=== PATIENT | female | born 1985 | race Caucasian/White ===

== ENCOUNTER 2018-12-22 12:53 | Emergency (ER) | payer SELFPAY ==
[~2018-12-22] VITALS: Ht 172.7 cm; Wt 62.3 kg
[2018-12-22] MEDS ORDERED: KETOROLAC 30 MG/ML VIAL. IM STA (15:27)
[2018-12-22] MEDS ORDERED: DIPHTH,PERTUSS(ACELL),TET TOX 0.5 ML DISP.SYRIN. VAX IM ONE (15:30)
--- NOTE | 2018-12-22 15:39 | PHYS DOC ---
Past Medical History Past Medical History: No Pertinent History Past Surgical History: No Surgical History Alcohol Use: None Adult General Chief Complaint Chief Complaint: KNEE INJURY HPI HPI Patient is a 33 year old female that presents with the complaint of a fall that happened this morning. The patient states she tripped over car dipstick. The patient states that she is having left knee pain, right elbow pain, and right orbital pain. The patient states her pain as 10 out of 10 in severity and sharp. States she took ibuprofen at home before coming. No other complaints. Review of Systems Review of Systems Constitutional: Denies fever or chills [] Eyes: Denies change in visual acuity, redness, or eye pain [] HENT: Denies nasal congestion or sore throat [] Respiratory: Denies cough or shortness of breath [] Cardiovascular: No additional information not addressed in HPI [] GI: Denies abdominal pain, nausea, vomiting, bloody stools or diarrhea [] : Denies dysuria or hematuria [] Musculoskeletal: Reports knee, and elbow pain. Report R orbital pain. Integument: Denies rash or skin lesions [] Neurologic: Denies headache, focal weakness or sensory changes [] Endocrine: Denies polyuria or polydipsia [] Complete systems were reviewed and found to be within normal limits, except as documented in this note. Current Medications Current Medications Current Medications Medications (Trade) Dose Ordered Sig/Apoorva Start Time Stop Time Status Last Admin Dose Admin Diphtheria/ Tetanus/Acell Pertussis (Boostrix) 0.5 ml ONCE ONCE 12/22/18 15:30 12/22/18 15:40 DC Ketorolac Tromethamine (Toradol 30mg Vial) 30 mg 1X STAT 12/22/18 15:27 12/22/18 15:28 DC 12/22/18 15:37 30 MG Morphine Sulfate (Morphine Sulfate) 10 mg 1X ONCE 12/22/18 18:15 12/22/18 18:16 DC 12/22/18 18:03 10 MG Allergies Allergies Allergies Coded Allergies Type Severity Reaction Last Updated Verified Sulfa (Sulfonamide Antibiotics) Allergy Unknown Rash 12/22/18 Yes Physical Exam Physical Exam Constitutional: Well developed, well nourished, no acute distress, non-toxic a ppearance. [] HENT: Normocephalic, atraumatic, bilateral external ears normal, oropharynx moist, no oral exudates, nose normal. [] Eyes: PERRLA, EOMI, conjunctiva normal, no discharge. Right orbital tenderness, with black bruising. Neck: Normal range of motion, no tenderness, supple, no stridor. [] Cardiovascular:Heart rate regular rhythm, no murmur [] Lungs & Thorax: Bilateral breath sounds clear to auscultation [] Abdomen: Bowel sounds normal, soft, no tenderness, no masses, no pulsatile masses. [] Skin: abrasions diffusely at different stages of healing. Back: No tenderness, no CVA tenderness. [] Extremities: Tenderness to left knee, and right elbow, edema to left knee. Neurologic: Alert and oriented X 3, normal motor function, normal sensory function, no focal deficits noted. [] Psychologic: Affect normal, judgement normal, mood normal. [] Current Patient Data Vital Signs Vital Signs Date Time Temp Pulse Resp B/P (MAP) Pulse Ox O2 Delivery O2 Flow Rate FiO2 12/22/18 14:30 98.0 99 18 122/81 (95) 99 Room Air 98.0 Lab Values Laboratory Tests Test 12/22/18 15:55 POC Urine HCG, Qualitative Hcg negative (Negative) EKG EKG [] Radiology/Procedures Radiology/Procedures [facility] [address] [place] [address] IMAGING REPORT Signed PATIENT: RENEE YO ACCOUNT: [id number] : 1985 LOCATION: ER AGE: 33 SEX: F EXAM STATUS: REG ER ORD. PHYSICIAN: GONZALES LAU APRN REASON: fall/NEEDS PREG TEST @ 1550 PROCEDURE: KNEE LEFT 3V Study: KNEE LEFT 3V Indication: Fall. Comparison: None. Findings: Very large knee joint effusion. The patella is tilted laterally and there is soft tissue prominence at the medial aspect of the knee. As seen on the AP views, serpiginous lucencies through the patella concerning for nondisplaced fracture clefts despite being essentially occult on the sunrise view. Osteopenia. Impression: 1. Very large knee joint effusion which is secondary to nondisplaced fracturing of the patella. The patella is laterally tilted and there is soft tissue prominence at the medial aspect of the knee. Though this soft tissue prominence could be related to joint distention, injury to the medial supporting structures is not excluded by radiography. 2. Osteopenia. Eventual DEXA scan is recommended to fully characterize given patient age. Electronically signed by: SD CHANDLER MD (12/22/2018 5:05 PM) [facility] DICTATED and SIGNED BY: SD CHANDLER MD DATE: 12/22/18 [address] [facility] [address] [place] [address] IMAGING REPORT Signed PATIENT: RENEE YO ACCOUNT: [id number] : 1985 LOCATION: ER AGE: 33 SEX: F EXAM STATUS: REG ER ORD. PHYSICIAN: GONZALES LAU APRN REASON: fall/NEEDS PREG TEST @ 1550 PROCEDURE: ELBOW RIGHT 3V Examination: ELBOW RIGHT 3V History: Fall, pain Comparison/Correlation: None Findings: Total 3 images of the right elbow were obtained. Joint spaces are normal. No fracture or bony destruction. No elbow joint effusion suspected. No degenerative change. Impression: No acute process. Electronically signed by: Jairo Matias MD (12/22/2018 5:00 PM) [facility] DICTATED and SIGNED BY: JAIRO MATIAS MD DATE: 12/22/18 1700 [][address] [place] [address] IMAGING REPORT Signed PATIENT: RENEE YO ACCOUNT: [id number] : 1985 LOCATION: ER AGE: 33 SEX: F EXAM STATUS: REG ER ORD. PHYSICIAN: GONZALES LAU APRN REASON: FALL TODAY PER PATIENT, FACIAL INJURY PROCEDURE: CT MAXILLOFACIAL WO CONTRAST Examination: CT MAXILLOFACIAL WO CONTRAST History: Facial injury, fall, pain Comparison/Correlation: None Findings: Maxillofacial CT exam was performed. Axial images were acquired and sagittal and coronal reformatted images were provided. Globes and optic nerves are unremarkable. Extraocular muscles are normal. Subcutaneous edema involving the subcutaneous fat about the right the hepatic bone anteriorly and the right premaxillary region noted Severe dental caries involvement of the kidneys noted. Absence of numerous crowns evident. Right upper central and lateral incisors have a large periapical cyst associated with the roots measuring up to 0.9 cm transverse by 1.4 cm longitudinal by 0.9 cm anteroposterior. Bony resorption along the posterior aspect of the maxilla at the site of this cystic structure noted. Dental caries noted as well. Periapical lucency is notable involving the right upper canine tooth. Periapical lucencies involving other teeth to a lesser extent also seen. No displaced fracture. Temporomandibular joints are unremarkable. Visualized upper cervical spine is unremarkable. Impression: Subcutaneous edema involving the right infraorbital region and anterior right zygomatic region. No loculated collection. No depressed fracture. Extensive dental caries. Absence of numerous crowns. Large periapical cystic structure involving the right upper central and lateral incisor. This is of concern for periodontal disease. Bony resorption along the posterior aspect of the maxilla at this level noted. Periapical lucencies otherwise also seen of concern for periodontal disease. PQRS Compliance Statement: One or more of the following individualized dose reduction techniques were utilized for this examination: 1. Automated exposure control 2. Adjustment of the mA and/or kV according to patient size 3. Use of iterative reconstruction technique Electronically signed by: Jairo Matias MD (12/22/2018 4:29 PM) [facility] DICTATED and SIGNED BY: JAIRO MATIAS MD DATE: 12/22/18 1629 Course & Med Decision Making Course & Med Decision Making Pertinent Labs and Imaging studies reviewed. (See chart for details) Will get CT scan, and x-rays. X-ray shows a patellar fracture. Discussed with Dr. Romero who recommends knee immobilizer and crutches and to see him in Clinic. Dragon Disclaimer Dragon Disclaimer This electronic medical record was generated, in whole or in part, using a voice recognition dictation system. Departure Departure Impression: Primary Impression: Patellar fracture Disposition: HOME, SELF-CARE Condition: STABLE Referrals: NO PCP (PCP) JUSTINE ROMERO MD Patient Instructions: Patellar Fracture, Adult Additional Instructions: Thank you for visiting [facility]. We appreciate you trusting us with your care. If any additional problems come up don't hesitate to return to visit us. Please follow up with your primary care provider so they can plan additional care if needed and know about the problem that you had. If symptoms worsen come back to the Emergency Department. Any concerning symptoms that start such as chest pain, shortness of air, weakness or numbness on one side of the body, running high fevers or any other concerning symptoms return to the ER. Please follow up with ortho and follow up with your primary care doctor for DEXA scan. Scripts Ondansetron (ONDANSETRON ODT) 4 Mg Tab.rapdis 1 TAB PO PRN Q6-8HRS PRN for NAUSEA, #16 TAB Prov: GONZALES LAU APRN 12/22/18 Hydrocodone/Apap 5-325 (NORCO 5-325 TABLET) 1 Each Tablet 1-2 TAB PO Q4-6HRS, #12 TAB Prov: GONZALES LAU APRN 12/22/18 Problem Qualifiers Primary Impression: Patellar fracture Encounter type: initial encounter Fracture type: closed Fracture alignment: nondisplaced Laterality: left GONZALES LAU APRN Dec 22, 2018 15:39
--- NOTE | 2018-12-22 16:32 | RAD ---
Examination: CT MAXILLOFACIAL WO CONTRAST History: Facial injury, fall, pain Comparison/Correlation: None Findings: Maxillofacial CT exam was performed. Axial images were acquired and sagittal and coronal reformatted images were provided. Globes and optic nerves are unremarkable. Extraocular muscles are normal. Subcutaneous edema involving the subcutaneous fat about the right the hepatic bone anteriorly and the right premaxillary region noted Severe dental caries involvement of the kidneys noted. Absence of numerous crowns evident. Right upper central and lateral incisors have a large periapical cyst associated with the roots measuring up to 0.9 cm transverse by 1.4 cm longitudinal by 0.9 cm anteroposterior. Bony resorption along the posterior aspect of the maxilla at the site of this cystic structure noted. Dental caries noted as well. Periapical lucency is notable involving the right upper canine tooth. Periapical lucencies involving other teeth to a lesser extent also seen. No displaced fracture. Temporomandibular joints are unremarkable. Visualized upper cervical spine is unremarkable. Impression: Subcutaneous edema involving the right infraorbital region and anterior right zygomatic region. No loculated collection. No depressed fracture. Extensive dental caries. Absence of numerous crowns. Large periapical cystic structure involving the right upper central and lateral incisor. This is of concern for periodontal disease. Bony resorption along the posterior aspect of the maxilla at this level noted. Periapical lucencies otherwise also seen of concern for periodontal disease. PQRS Compliance Statement: One or more of the following individualized dose reduction techniques were utilized for this examination: 1. Automated exposure control 2. Adjustment of the mA and/or kV according to patient size 3. Use of iterative reconstruction technique Electronically signed by: Jairo Geiger MD (12/22/2018 4:29 PM) [facility]
--- NOTE | 2018-12-22 17:03 | RAD ---
Examination: ELBOW RIGHT 3V History: Fall, pain Comparison/Correlation: None Findings: Total 3 images of the right elbow were obtained. Joint spaces are normal. No fracture or bony destruction. No elbow joint effusion suspected. No degenerative change. Impression: No acute process. Electronically signed by: Jairo Geiger MD (12/22/2018 5:00 PM) [facility]
--- NOTE | 2018-12-22 17:08 | RAD ---
Study: KNEE LEFT 3V Indication: Fall. Comparison: None. Findings: Very large knee joint effusion. The patella is tilted laterally and there is soft tissue prominence at the medial aspect of the knee. As seen on the AP views, serpiginous lucencies through the patella concerning for nondisplaced fracture clefts despite being essentially occult on the sunrise view. Osteopenia. Impression: 1. Very large knee joint effusion which is secondary to nondisplaced fracturing of the patella. The patella is laterally tilted and there is soft tissue prominence at the medial aspect of the knee. Though this soft tissue prominence could be related to joint distention, injury to the medial supporting structures is not excluded by radiography. 2. Osteopenia. Eventual DEXA scan is recommended to fully characterize given patient age. Electronically signed by: SD CHANDLER MD (12/22/2018 5:05 PM) [facility]
[2018-12-22] MEDS ORDERED: MORPHINE SULFATE 10 MG/ML VIAL. IM ONE ×2 (18:15)
[2018-12-22] MEDS ORDERED: HYDR-3164 PO (18:24)
[2018-12-22] MEDS ORDERED: ONDA4TAB12 PO (18:24)
[2018-12-22 18:31] VITALS: BP 132/78
== END 2018-12-22 18:31 | disposition home or self-care (01) ==
LOC: ER 12:53
DX: S82.002A Unspecified fracture of left patella, initial encounter for closed fracture (principal); M25.521 Pain in right elbow; H57.11 Ocular pain, right eye; R51 Headache; Z88.2 Allergy status to sulfonamides; W18.09XA Striking against other object with subsequent fall, initial encounter; Y93.89 Activity, other specified; Y92.89 Other specified places as the place of occurrence of the external cause; Y99.8 Other external cause status
CPT/HCPCS: 29505; 70486; 73080; 73562; 81025; 96372; 99284; J1885; J2270